=== PATIENT | male | born 1990 | race Caucasian/White ===

== ENCOUNTER 2025-02-10 01:25 | Emergency (ER) | payer MEDICAID, OTHER ==
[~2025-02-10] VITALS: Ht 177.8 cm; Wt 88.0 kg
[2025-02-10 01:28] VITALS: O2SAT 100
[2025-02-10 02:03] LABS: BASOPHILS % 0.5 % (0.0-2.0); EOSINOPHILS % 0.4 % (0.0-5.0); HEMATOCRIT. 42.3 % (42.0-52.0); HEMOGLOBIN. 14.6 g/dL (14.0-18.0); LYMPHOCYTES % 28.1 % (20.0-50.0); MEAN PLATELET VOLUME 9.1 fl (7.4-10.4); MONOCYTES % 6.8 % (2.0-8.0); NEUTROPHILS % 64.2 % (40.0-76.0); PLATELET 237 x1000/uL (130-400); RED BLOOD CELL COUNT 4.93 mill/uL (4.7-6.1); RED CELL DISTRIBUTION WIDTH 13.8 % (11.6-14.6)
[2025-02-10] MEDS: SODIUM CHLORIDE 0.9% 1,000 ML IV ONE (02:09)
[2025-02-10] MEDS: ONDANSETRON HCL 4MG/2ML INJ IV ONE (02:10)
[2025-02-10] MEDS: KETOROLAC 15MG/ML VIAL IV ONE (02:11)
[2025-02-10 02:17] LABS: CREATININE 0.8 mg/dL (0.6-1.3); ETHANOL BLOOD < 10 mg/dL (<10); UREA NITROGEN BLOOD 7 mg/dL (9-23)
[2025-02-10] MEDS: MECLIZINE 25MG TABLET PO ONE (02:46)
[2025-02-10] MEDS ORDERED: IBUP-1455 MT (03:39)
[2025-02-10 04:33] VITALS: BP 117/79; PULSE 73; RESP 14; TEMP 36.7; O2SAT 98
== END 2025-02-10 04:40 | disposition home or self-care (01) ==
LOC: ER 01:25
DX: G44.209 Tension-type headache, unspecified, not intractable (principal); E11.65 Type 2 diabetes mellitus with hyperglycemia; I10 Essential (primary) hypertension; Z79.899 Other long term (current) drug therapy
CPT/HCPCS: 80048; 80320; 85025; 36415; 96374; 96375; 99285; J8597; J1885; J2405; J7030; G0480

== ENCOUNTER 2025-02-21 16:33 | Emergency (ER) | payer SELFPAY ==
[~2025-02-21] VITALS: Ht 170.2 cm; Wt 83.0 kg
[~2025-02-21 16:33] MED LIST: IBUP-1455 MT
[2025-02-21 16:48] VITALS: O2SAT 98
[2025-02-21 20:37] LABS: CLARITY URINE CLEAR (CLEAR); COLOR URINE YELLOW (YELLOW); GLUCOSE URINE 3+ (NEGATIVE); KETONES URINE TRACE (NEGATIVE); LEUKOCYTE ESTERASE URINE NEGATIVE (NEGATIVE); NITRITE URINE NEGATIVE (NEGATIVE); OCCULT BLOOD URINE NEGATIVE (NEGATIVE); PH URINE 6.0 (4.5-8.0); PROTEIN URINE NEGATIVE (NEGATIVE); SPECIFIC GRAVITY URINE 1.025 (1.005-1.030); UROBILINOGEN URINE 1.0 E.U./dL (0.2-1.0)
[2025-02-21] MEDS: CEFTRIAXONE SODIUM 500MG VIAL IM ONE (20:42)
[2025-02-21] MEDS ORDERED: DOXY100T2 MT (20:44)
[2025-02-21] MEDS ORDERED: IBUP-1455 MT (20:44)
[2025-02-21] MEDS ORDERED: BO1 TP (20:44)
[2025-02-21 20:48] LABS: BACTERIA URINE NONE SEEN; RBC URINE 0-2 /hpf (0-2); SQUAMOUS EPITHELIAL CELL URINE RARE /lpf (RARE/1+); WBC URINE 0-2 /hpf (0-2)
[2025-02-21 21:01] VITALS: BP 154/91; PULSE 73; RESP 18; TEMP 36.4; O2SAT 100
[2025-02-24 04:07] LABS: HSV TYPE 2 SPECIFIC AB IGG Non Reactive (Non Reactive)
[2025-02-24 13:10] LABS: CHLAMYDIA TRACHOMATIS NAA Negative (Negative); NEISSERIA GONORRHOEAE NAA Negative (Negative)
== END 2025-02-21 21:07 | disposition home or self-care (01) ==
LOC: ER 16:33
DX: A57 Chancroid (principal); E11.9 Type 2 diabetes mellitus without complications; Z11.3 Encounter for screening for infections with a predominantly sexual mode of transmission; Z79.899 Other long term (current) drug therapy
CPT/HCPCS: 86695; 86696; 87491; 87591; 81003; 86592; 36415; 96372; 99283; J0696; Z7610 ×2